=== PATIENT | male | born 1965 | race Caucasian/White ===

== ENCOUNTER 2024-01-13 17:54 | Emergency (ER) | payer SELFPAY ==
[2024-01-13] VITALS (7 sets, daily range): BP systolic 154–178; BP diastolic 84–100
[~2024-01-13] VITALS: Ht 188 cm; Wt 111.1 kg
[2024-01-13] MEDS ORDERED: SODIUM CHLORIDE 0.9% 1,000 ML IV ONE (18:05)
[2024-01-13 18:38] LABS: BASO% 0.4 % (0-3); EOS% 2.7 % (0-8); HEMATOCRIT 45.6 % (39.0-50.0); HEMOGLOBIN 14.9 g/dl (14.0-18.0); IMMATURE GRANULOCYTES 0.4 % (0.0-5.0); LYMPH% 29.1 % (15-41); MEAN CELL VOLUME 88.2 fL CALC (80.0-100.0); MEAN CORPUSCULAR HGB 28.8 pG CALC (26.0-32.0); MEAN CORPUSCULAR HGB CONC 32.7 g/dL CAL (32.0-36.0); NEUT% 59.4 % (42-76); RED BLOOD COUNT 5.17 mill/uL (4.70-6.10); RED CELL DISTRI WIDTH 12.9 % (11.5-15.5)
[2024-01-13 18:42] LABS: ALBUMIN 4.3 g/dL (3.2-5.0); ALKALINE PHOSPHATASE 54 u/l (38-126); ANION GAP 9 (6-22 (CALC)); BILIRUBIN, TOTAL 0.3 mg/dL (0.2-1.3); BUN 21 mg/dL (9-20); BUN/CREATININE RATIO 16 (12-20 (CALC)); CARBON DIOXIDE 30 mmol/l (22-30); CHLORIDE 103 mmol/l (95-108); CREATININE 1.3 mg/dL (0.7-1.3); GFR FOR AFR.AMER. > 60 ML/MIN (>=60 (CALC)); GFR OTHER RACES 57 ML/MIN (>=60 (CALC)); LIPASE 57 u/l (23-300); POTASSIUM 4.2 mmol/l (3.5-5.1); SGOT/AST 27 u/l (17-59); SODIUM 138 mmol/l (137-146)
[2024-01-13] MEDS ORDERED: ONDANSETRON HCl 4 MG/2 ML SDV IV ONE (18:55)
[2024-01-13] MEDS ORDERED: DEXAMETHASONE SOD. PHOSPHATE 10 MG/ML VIAL IV ONE (19:15)
[2024-01-13] MEDS ORDERED: DiphenhydrAMINE HCL 50 MG/ML SDV IV ONE (19:15)
[2024-01-13] MEDS ORDERED: KETOROLAC TROMETHAMINE 30 MG/ML SDV IV ONE (19:15)
[2024-01-13 20:11] LABS: URINE BILIRUBIN - DIPSTICK Negative (NEGATIVE); URINE BLOOD DIPSTICK Negative (NEGATIVE); URINE GLUCOSE - DIPSTICK Negative (NEGATIVE); URINE KETONE Negative (NEGATIVE); URINE LEUK ESTERASE Negative (NEGATIVE); URINE NITRITE - DIPSTICK Negative (Negative); URINE PROTEIN - DIPSTICK Negative (NEG-TRACE); URINE SPECIFIC GRAVITY 1.025; URINE UROBILINOGEN - DIPSTICK 0.2 E.U./dL (0.2)
[2024-01-13 20:12] LABS: URINE COLOR Yellow
== END 2024-01-13 21:03 | disposition home or self-care (01) | DRG 948 ==
LOC: ED 17:54
PROVIDERS: Family Medicine
DX: R53.83 Other fatigue (principal); R42 Dizziness and giddiness; Z20.822 Contact with and (suspected) exposure to COVID-19